=== PATIENT | female | born 1975 | race Two or more races ===

== ENCOUNTER → 2016-12-14 | Outpatient (CLI) | payer OTHER ==
--- NOTE | ~2016-12-14 | US24 ---
[facility] A Service of [facility] & [facility] RADIOLOGY TEXT RESULTS PATIENT: JERICA OWENS LOCATION: [facility] : 75 UNIT #: [id number] AGE: [address]: CASSANDRA JIMENEZ MD SEX: F ORDER DR: [id number] [facility] [address] [place], [place] [address] [id number] O MR#: [id number] Acc #: [id number] NAME: JERICA OWENS : 1975 SEX: F STUDY DATE/TIME: 12/14/2016 13:11 UNIT: [facility] ROOM: STUDY DESCRIPTION: US Breast Unilateral Attending Physician: Cassandra Jimenez M.D. Referring Physician: Cassandra Jimenez M.D. Ordering Physician: Cassandra Jimenez M.D. Primary Care Physician: Cassandra Jimenez M.D. MEDICAL IMAGING REPORT This report is preliminary unless electronic signature is present REVISED REPORT SEE ADDENDUM EXAM Left breast ultrasound. COMPARISON STUDIES Bilateral diagnostic mammogram and left breast ultrasound 07/08/2015; screening mammogram 02/10/2013. HISTORY 41-year-old female who reports a lump has been present in the upper outer quadrant of the left breast, which has been stable for 1 year. Patient reports increasing associated pain. Patient also reports having a mammogram performed at [facility] approximately 3 weeks ago, but this is unavailable for comparison. FINDINGS Sonographic evaluation was performed throughout the upper outer quadrant of the left breast. This was negative. I personally performed physical exam in the area of patient complaint that she identified to be approximately the 2 o'clock location approximately 8 cm from the nipple. This location has palpable fibroglandular nodularity, and there is an island of echogenic fibroglandular tissue in this location on sonography. IMPRESSION No sonographic evidence of malignancy in the left breast. In the area of patient concern, there is only a normal island of fibroglandular tissue with adjacent fat. The patient recently had a mammogram at an outside facility approximately 3 weeks ago. Comparison with that mammogram is recommended to document stability of the mammographic pattern, and an [facility] A Service of [facility] RADIOLOGY TEXT RESULTS PATIENT: JERICA OWENS LOCATION: [facility] : 75 UNIT #: [id number] AGE: [address]: CASSANDRA JIMENEZ MD SEX: F ORDER DR: addendum will be performed upon receipt of the patient's outside imaging. The patient was instructed that she may have to return for additional sonographic imaging if there is a change on her mammogram. Patients over the age of 40 are entered into a reminder system with target due date for the next mammogram. A result letter will also be sent to the patient. BIRADS: 0 Incomplete; need additional imaging evaluation and/or prior mammograms for comparison. Dictated by... Papo Jacobo M.D. THIS IS AN ELECTRONICALLY VERIFIED REPORT Papo Jacobo M.D. at 12/17/2016 9:30 AM Mary TD: 12/15/2016 13:12 JOB #: [id number] ADDENDUM Comparison was made to outside mammogram performed at [facility] and [place] [address] dated 11/08/2016 as well as other mammograms performed within our system on 07/08/2015 and 02/10/2013. FINDINGS There are scattered fibroglandular densities in the left breast. The mammogram of 11/08/2016 does not demonstrate any changes in the upper, outer quadrant of the left breast as compared 07/08/2015 and 02/10/2013. However, in the posterior third of the left breast, there are multiple incompletely included asymmetries overlapping the pectoralis muscle, favored represent lymph nodes excluded from field of view on comparison exams. I cannot state definitively that these represent normal lymph nodes and given the patient's complaint of pain in the region of the upper, outer quadrant of the left breast, sonographic evaluation of the left axilla is recommended to exclude evidence of adenopathy. The largest asymmetry measures up to approximately 2.2 cm and sonographic correlate should be identified. IMPRESSION [facility]. [facility] A Service of [facility] & [facility] RADIOLOGY TEXT RESULTS PATIENT: JERICA OWENS [id number] 75 UNIT #: [id number] AGE: [address]: CASSANDRA JIMENEZ MD SEX: F ORDER DR: There are multiple asymmetries measuring up to 2.2 cm in the superior posterior third of the left breast which are not seen on comparison mammograms but noted on 11/08/2016. These may represent normal lymph nodes that were incompletely seen but morphologically abnormal lymph nodes cannot entirely be excluded. Further evaluation with left axillary ultrasound is recommended to identify sonographic correlates. Given the proximity of the axilla to the upper, outer quadrant of the left breast, it is possible the patient could be having referred pain possibly due to adenopathy or other abnormality in the left axilla. Patient's over the age of 40 are entered into a reminder system with target due date for the next mammogram. BIRADS: 0 Incomplete; Need additional imaging evaluation and/or prior mammograms for comparison. Dictated by... Papo Jacobo M.D. THIS IS AN ELECTRONICALLY VERIFIED REPORT Papo Jacobo M.D. at 06/11/2017 9:07 PM Chiquita TD: 12/21/2016 11:18 JOB #: [id number] MEDICAL IMAGING REPORT Page 1 of 1 COPY
== END | disposition home or self-care (01) ==
LOC: CGUS 12:54
DX: N64.4 Mastodynia (principal)
CPT/HCPCS: 76641

== ENCOUNTER → 2017-06-04 | Outpatient (CLI) | payer OTHER ==
--- NOTE | ~2017-06-04 | US24 ---
[facility] A Service of [facility] & [facility] RADIOLOGY TEXT RESULTS PATIENT: JERICA OWENS LOCATION: [facility] : 75 UNIT #: [id number] AGE: [address]: HEENA HIRSCH APRN SEX: F ORDER DR: [id number] [facility] [address] [place], [place] [address] [id number] O MR#: [id number] Acc #: [id number] NAME: JERICA OWENS : 1975 SEX: F STUDY DATE/TIME: 06/04/2017 14:52 UNIT: [facility] ROOM: STUDY DESCRIPTION: US Breast Unilateral Attending Physician: Carmine Hirsch Aprn Referring Physician: Carmine Hirsch Aprn Ordering Physician: Carmine Hirsch Aprn Primary Care Physician: Camilo Doss M.D. MEDICAL IMAGING REPORT This report is preliminary unless electronic signature is present EXAM Left breast ultrasound, 06/04/2017. HISTORY Left breast pain and palpable lump in the left upper outer quadrant. TECHNIQUE Ultrasound of the left upper outer quadrant was performed by the technologist and myself. Patient indicated where had been feeling a lump. FINDINGS There is no abnormality identified. IMPRESSION Negative targeted left breast ultrasound. Routine mammographic screening in November 2017 is recommended. BIRADS: 1 Negative Dictated by... Jersey Valdez M.D. THIS IS AN ELECTRONICALLY VERIFIED REPORT Jersey Valdez M.D. at 06/04/2017 10:09 PM Malina TD: 06/04/2017 19:11 JOB #: [id number] MEDICAL IMAGING REPORT Page 1 of 1 COPY
--- NOTE | ~2017-06-04 | MY24 ---
[facility] A Service of [facility] & [facility] RADIOLOGY TEXT RESULTS PATIENT: JERICA OWENS LOCATION: [facility] : 75 UNIT #: [id number] AGE: [address]: HEENA HIRSCH APRN SEX: F ORDER DR: [id number] [facility] [address] [place], [place] [address] [id number] O MR#: [id number] Acc #: [id number] NAME: JERICA OWENS : 1975 SEX: F STUDY DATE/TIME: 06/04/2017 14:35 UNIT: [facility] ROOM: STUDY DESCRIPTION: [facility] W/ CAD UNI Attending Physician: Carmine Hirsch Aprn Referring Physician: Carmine Hirsch Aprn Ordering Physician: Carmine Hirsch Aprn Primary Care Physician: Camilo Doss M.D. MEDICAL IMAGING REPORT This report is preliminary unless electronic signature is present EXAM Left breast diagnostic mammogram. INDICATIONS Left breast pain and lumpiness upper/outer quadrant which patient thinks has increased in conspicuity since 11/08/2016. COMPARISON STUDIES 11/08/2016 and 07/08/2015. FINDINGS Today's study includes MLO and mL, and straight lateral views as well as spot compression views in the CC and MLO projection. They were done with 2-D technique and reviewed with an FDA approved CAD device. There are scattered fibroglandular densities present. There are no masses or abnormal calcifications. Skin marker for the lump was placed in the left upper/outer outer quadrant. Ultrasound of this area was performed by the technologist and myself. No mass is visible and there has been no change from the prior studies. IMPRESSION The diagnostic left mammogram and targeted left breast ultrasound did not show any evidence of malignancy, and there has been no change from the prior studies. Routine mammographic screening in November 2017, is recommended. BIRADS category 2. Patients over the age of 40 are entered into a reminder system with target due date for the next mammogram. A result letter will also be sent to the patient. BIRADS: 2 Benign findings. [facility]. [facility] A Service of [facility] & [facility] RADIOLOGY TEXT RESULTS PATIENT: JERICA OWENS LOCATION: [facility] : 75 UNIT #: [id number] AGE: [address]: HEENA HIRSCH APRN SEX: F ORDER DR: Dictated by... Jersey Valdez M.D. THIS IS AN ELECTRONICALLY VERIFIED REPORT Jersey Valdez M.D. at 06/06/2017 11:27 AM LARRY/jerrod TD: 06/04/2017 18:39 JOB #: [id number] MEDICAL IMAGING REPORT Page 1 of 1 COPY
== END | disposition home or self-care (01) ==
LOC: CMAM 14:04
DX: R91.8 Other nonspecific abnormal finding of lung field (principal)
CPT/HCPCS: 76641; G0206